=== PATIENT | female | born 1965 | race Caucasian/White ===

== ENCOUNTER 2018-05-30 14:49 | Emergency (ER) | payer MEDICAID ==
[2018-05-30] MEDS: PROMETHAZINE/CODEINE 5ML CUP PO (16:47)
[2018-05-30] MEDS: KETOROLAC 30 MG INJ IM (16:47)
[2018-05-30 17:55] LABS: TROPONIN-I < 0.012 ng/ml (0.000-0.120)
== END 2018-05-30 18:09 | disposition home or self-care (01) ==
LOC: FTE 14:49
DX: J06.9 Acute upper respiratory infection, unspecified (principal); R07.89 Other chest pain
CPT/HCPCS: 71045; 81025; 84484; 87880; 93005; 96372; 99285-25